=== PATIENT | female | born 1995 | race Two or more races ===

== ENCOUNTER 2019-05-28 16:26 | Emergency (ER) | payer MEDICAID ==
[~2019-05-28] VITALS: Ht 149.9 cm; Wt 97.1 kg
[2019-05-28 16:30] VITALS: BP 152/85
--- NOTE | 2019-05-28 16:30 | NUR ---
ED Nurse Note: Patient manny RA [id number] from home c/o dizziness for the past 30 minutes, patient states that she does feel nauseous and feels like the room is spinning however reports of no episodes of vomiting. reports of 5/10 abdominal pain. patient is alert and oriented x4, ambulatory with a steady gait, VSS
--- NOTE | 2019-05-28 16:53 | Emergency Room Report ---
History of Present Illness General Chief Complaint: Dizziness Source: Patient Present Illness HPI HPI: This is a 24-year-old otherwise healthy female presents for evaluation of abdominal discomfort, dizziness and near syncope. Symptoms began earlier this morning and have intensified throughout the day. She notes a generalized and diffuse abdominal cramping, persistently worsening nausea throughout the day and several episodes of "dizziness." She describes this as sometimes unsteadiness and sometimes the subjective feeling of motion falling to the left side. She states she had one near syncopal episode which improved after laying down flat. She called EMS after this near syncopal episode. She denies any chest pain, shortness of breath, vomiting, diarrhea or recent illness. She takes no medications. Denies the possibility of though states she does not get regular periods. Denies any urinary frequency, pain, discharge or vaginal bleeding. She denies any changes in her hearing, changes in coordination, difficulty ambulating, weakness, paresthesias, neck or back pain, changes in her speech. She does note a slight headache over the right temporal region that started several minutes prior to arrival in the ED. Currently grades it as a 4/10. PMH: Denies PSH: Denies Social Hx: Denies tobacco use, alcohol use, drug use Allergies: Denies Allergies: Coded Allergies: No Known Allergies (Unverified , 05/28/19) Patient History Last Menstrual Period: per pt, not getting any period Nursing Documentation-PMH Past Medical History: No Stated History Review of Systems All Other Systems: negative except mentioned in HPI Physical Exam Vital Signs Date Time Temp Pulse Resp B/P (MAP) Pulse Ox O2 Delivery O2 Flow Rate FiO2 05/28/19 16:26 98.4 96 16 140/83 (102) 100 Room Air General: Awake and alert appears mildly uncomfortable HEENT: Normocephalic, atraumatic. EOMI. no nystagmus. Visual cotto are full. Facial expressions are symmetrical. No droop. Tongue and uvula are midline. Neck: Supple, trachea midline Chest Wall: No tenderness, no deformity CV: RRR. S1 and S2 normal. No murmur appreciated Resp: Normal work of breathing. No cough, wheezing or crackles appreciated Abd: Soft, obese abdomen. Mild tenderness diffusely. No rebound. Skin: Intact. No abrasions, laceration or rash over the exposed skin MSK: Normal tone and bulk. No obvious deformity. Moving all extremities Neuro: Awake and alert. Mentating appropriately. There is no nystagmus. There is no ataxia on [id number] testing. Visual cotto are full. Facial expression's are symmetrical. Medical Decision Making Diagnostic Impression: Primary Impression: Dizziness Additional Impressions: Abdominal pain Nausea ER Course Is a 24-year-old otherwise healthy female presenting for evaluation of nausea, diffuse abdominal pain and dizziness beginning earlier today. Vital signs are stable though she appears mildly uncomfortable. She states her nausea is improving though still present as well with some intermittent dizziness. There does not appear to be a positional effect of this dizziness she does describe some vague abdominal pain. This may be vertiginous or an early GI illness. Will obtain EKG, give IV fluids, antiemetics and check labs including . EKG Diagnostic Results EKG Time: 16:52 EP Interpretation: Normal sinus rhythm, no ST changes, normal intervals and normal axis. Rate: normal Rhythm: NSR ST Segments: no acute changes Rhythm Strip Diag. Results Rhythm Strip Time: 16:52 EP Interpretation: yes Rate: 81 Rhythm: NSR Reevaluation Time: 18:28 Last Vital Signs Date Time Temp Pulse Resp B/P (MAP) Pulse Ox O2 Delivery O2 Flow Rate FiO2 05/28/19 16:30 98.4 90 16 152/85 100 Room Air Status: improved Reevaluation Impression Patient had little improvement after receiving IV Zofran however she was then given Reglan which drastically improved her symptoms. She states her abdominal pain, nausea and dizziness feelings are resolved. Labs, EKG returned largely unremarkable. There was microscopic hematuria, proteinuria and bacteria in the urine sample though this may be contamination given the epithelial cells. Will send for culture and elect not to treat at this time as she has no symptoms of a urinary tract infection. She can follow-up with a hematuria as an outpatient. Will prescribe Reglan for symptom control over the next few days. Will include list of primary care clinics in the area taking new patients. Discussed reasons to return to the emergency department patient. She understands and agrees with this treatment plan will be discharged home. Disposition: HOME, SELF-CARE Condition: Improved Scripts Metoclopramide Hcl* (REGLAN*) 5 Mg Tablet 5 MG ORAL EVERY 6 HOURS, #10 TAB Prov: Jas Mary MD 05/28/19 Referrals: Britney LEONREFERRING (PCP) Jas Mary MD May 28, 2019 16:53
[2019-05-28 17:04] LABS: BASOPHILS % (AUTO) 1.1 % (0.0-2.0); EOSINOPHILS % (AUTO) 3.9 % (0.0-3.0); HEMOGLOBIN 14.9 G/DL (12.0-16.0); LYMPHOCYTES % (AUTO) 36.3 % (20.0-45.0); MEAN CORPUSCULAR VOLUME 80 FL (80-99); MONOCYTES % (AUTO) 6.6 % (1.0-10.0); NEUTROPHILS % (AUTO) 52.1 % (45.0-75.0); PLATELET COUNT 409 K/UL (150-450); RED BLOOD COUNT 5.36 M/UL (4.20-5.40); RED CELL DISTRIBUTION WIDTH 11.2 % (11.6-14.8)
[2019-05-28 17:05] LABS: APPEARANCE,URINE SLIGHTLY CLOUDY; BILIRUBIN, URINE NEGATIVE (NEGATIVE); COLOR,URINE PALE YELLOW; GLUCOSE, URINE (UA) NEGATIVE (NEGATIVE); KETONES,URINE NEGATIVE (NEGATIVE); LEUKOCYTE ESTERASE ,URINE NEGATIVE (NEGATIVE); NITRITE,URINE NEGATIVE (NEGATIVE); PH,URINE 6.5 (4.5-8.0); PROTEIN,URINE 4+ (NEGATIVE); UROBILINOGEN,URINE NORMAL MG/DL (0.0-1.0)
[2019-05-28] MEDS ORDERED: Metoclopramide 10mg/2ml Inj ONE (17:26)
[2019-05-28 17:27] LABS: ANION GAP 7 mmol/L (5-15); BLOOD UREA NITROGEN 10 mg/dL (7-18); CALCIUM 9.1 MG/DL (8.5-10.1); CARBON DIOXIDE 29 MMOL/L (21-32); CHLORIDE 106 MMOL/L (98-107); CREATININE 0.7 MG/DL (0.55-1.30); POTASSIUM 3.8 MMOL/L (3.5-5.1); SODIUM 142 MMOL/L (136-145)
[2019-05-28 17:30] LABS: ALANINE AMINOTRANSFERASE 66 U/L (12-78); ALBUMIN 3.8 G/DL (3.4-5.0); ALBUMIN/GLOBULIN RATIO 0.8 (1.0-2.7); ALKALINE PHOSPHATASE 96 U/L (46-116); ASPARTATE AMINO TRANSFERASE < 5 U/L (15-37); BILIRUBIN,TOTAL 0.2 MG/DL (0.2-1.0)
[2019-05-28] MEDS ORDERED: Metoclopramide 10mg/2ml Inj IVP ONE (17:30)
[2019-05-28 18:30] VITALS: BP 120/82
--- NOTE | 2019-05-28 18:30 | NUR ---
ER DISCHARGE NOTE: Patient is cleared to be discharged per ERMD, pt is aox4, on room air, with stable vital signs. pt was given dc and prescription instructions, pt was able to verbalize understanding, pt id band and iv site removed without complications. pt is able to ambulate with steady gait. pt took all belongings.
[2019-05-28] MEDS ORDERED: REGLAN5 MG ORAL (18:31)
[2019-05-31] MEDS ORDERED: CEPHALEXIN500 MG ORAL (07:41)
== END 2019-05-28 18:30 | disposition home or self-care (01) ==
LOC: EDBD 16:26 → EMR 16:40
DX: R42 Dizziness and giddiness (principal); R10.9 Unspecified abdominal pain; R11.0 Nausea
CPT/HCPCS: 36415; 80053; 81003; 81025; 83690; 85025; 87086; 87181; 93005; 96361; 96374; 96375; 99284; J2405; J2765

== ENCOUNTER 2020-02-12 19:31 | Emergency (ER) | payer MEDICAID ==
[~2020-02-12] VITALS: Ht 165.1 cm; Wt 90.7 kg
[~2020-02-12 19:31] MED LIST: CEPHALEXIN500 MG ORAL; REGLAN5 MG ORAL
--- NOTE | 2020-02-12 19:44 | NUR ---
ED Nurse Note: Walk-in patient with complaints of ack pain x 3 days, minimally responsive to tylenol. ERMD at bedside.
[2020-02-12 19:45] VITALS: BP 128/80
[2020-02-12] MEDS ORDERED: Methocarbamol 500mg tab ORAL ONE (19:48)
[2020-02-12] MEDS ORDERED: Ketorolac 30mg Inj ONE (19:48)
[2020-02-12] MEDS ORDERED: ROBAXIN-750750 MG PO (19:49)
[2020-02-12] MEDS ORDERED: LIDODERM700 M1 TOPIC (19:49)
[2020-02-12] MEDS ORDERED: ACETAMINOPHEN325 M1 ORAL (19:49)
[2020-02-12] MEDS ORDERED: IBUPROFEN600 M1 ORAL (19:49)
--- NOTE | 2020-02-12 19:53 | Emergency Room Report ---
History of Present Illness General Chief Complaint: Back Pain-No Injury Source: Patient Present Illness HPI Disclaimer: Please note that this report is being documented using [employer] technology. This can lead to erroneous entry secondary to incorrect interpretation by the dictating instrument. This is a 25-year-old female presenting for evaluation of right-sided back pain. 2 days ago the patient slipped while getting out of the shower falling backwards though catching herself on a railing. She states she significantly strained her back. Reports continuous aching and worsening pain on the right side that is worse with bending and twisting motion and somewhat relieved by rest. Also getting some help from Tylenol though this is intermittent. Denies any pain rating down the leg. Denies urinary retention, fecal incontinence, lower extremity weakness, lower extremity numbness/tingling. No prior history of back injury. No other injury reported. Otherwise in her usual state of health. Denies vaginal bleeding, vaginal discharge, fever, chills, dysuria, hematuria, urinary frequency or urgency. Allergies: Coded Allergies: No Known Allergies (Unverified , 05/28/19) COVID-19 Screening Contact w/high risk pt: No Recent Travel to affected area: No Experienced COVID-19 symptoms?: No Patient History Last Menstrual Period: 01/21/20 Now: No : 0 Para: 0 Nursing Documentation-[facility] Past Medical History: No Stated History Review of Systems All Other Systems: negative except mentioned in HPI Physical Exam Vital Signs Date Time Temp Pulse Resp B/P (MAP) Pulse Ox O2 Delivery O2 Flow Rate FiO2 02/12/20 19:35 98.8 79 17 128/80 (96) 96 Room Air General: Awake and alert, no acute distress HEENT: NC/AT. EOMI. Resp: Normal work of breathing Skin: Intact. No abrasions, laceration or rash over the exposed skin MSK: Normal tone and bulk. Moving all extremities. No obvious deformity. Ambulating without difficulty Neuro: Awake and alert. Mentating appropriately. Sensation intact over the dermatomes of lower extremities bilaterally. Spine: No tenderness, step-off or deformity in the thoracic or lumbosacral spine over the midline. No paraspinal tenderness. There is tenderness over the right side just above the right iliac crest. Medical Decision Making Diagnostic Impression: Primary Impression: Low back strain ER Course Is a 25-year-old female presenting for evaluation of right-sided back pain 2 days duration after a slip in the shower. Patient's history and physical exam was consistent with a mild strain or spasm. There is no tenderness in the midline of the spine and no direct trauma reported. No dictation for imaging at this time. She is neurologically intact. Will treat with NSAIDs, Robaxin, lidocaine patches. Patient will follow-up on outpatient basis with PMD. Also gave information for the orthopedic urgent care should her symptoms persist. Instructed to return with new or worsening symptoms. She understands and agrees with this treatment plan. Last Vital Signs Date Time Temp Pulse Resp B/P (MAP) Pulse Ox O2 Delivery O2 Flow Rate FiO2 02/12/20 19:45 98.8 79 17 128/80 96 Room Air Disposition: HOME, SELF-CARE Condition: Stable Scripts Lidocaine Patch* (Lidoderm Patch*) 1 Each Adh..patch 1 PATCH TOPIC DAILY, #10 PATCH 0 Refills Patch(es) may remain in place for up to 12 hours in any 24-hour period. Prov: Jas Mary MD 02/12/20 Methocarbamol* (ROBAXIN-750*) 750 Mg Tablet 750 MG PO QID, #28 TAB 0 Refills Prov: Jas Mary MD 02/12/20 Acetaminophen* (ACETAMINOPHEN 325MG TABLET*) 325 Mg Tablet 650 MG ORAL Q6H PRN for For Pain, #40 TAB Prov: Jas Mary MD 02/12/20 Ibuprofen* (MOTRIN*) 600 Mg Tablet 600 MG ORAL Q6H PRN for For Pain, #30 TAB 0 Refills Prov: Jas Mary MD 02/12/20 Referrals: Britney Mcdonough [facility] Open 24 hour /7 days a week by Appointment Only [address] [facility] [address] [facility] [address] Patient Instructions: Back Pain, Adult, Low Back Strain With Rehab-SportsMed Additional Instructions: Use the medication as prescribed. Please follow-up with your primary care doctor in the next 1 to 3 days to discuss this emergency department visit and for reevaluation. If you have any new or worsening symptoms please return to the emergency department for reevaluation. Please note that this report is being documented using [employer] technology. This can lead to erroneous entry secondary to incorrect interpretation by the dictating instrument. Jas Mary MD Feb 12, 2020 19:53
[2020-02-12] MEDS ORDERED: Ketorolac 30mg Inj IM ONE (20:00)
[2020-02-12] MEDS ORDERED: Methocarbamol 750mg tab ORAL ONE (20:00)
--- NOTE | 2020-02-12 20:02 | NUR ---
ER DISCHARGE NOTE: Patient is cleared to be discharged per ERMD, pt is aox4, on room air, with stable vital signs. pt was given dc and prescription instructions, pt was able to verbalize understanding, pt id band removed. pt is able to ambulate with steady gait. pt took all belongings. Patient tolerated medication administration well and departed accompanied by her .
[2020-02-12 20:03] VITALS: BP 128/80
== END 2020-02-12 20:03 | disposition home or self-care (01) ==
LOC: EMR 19:47
DX: S39.012A Strain of muscle, fascia and tendon of lower back, initial encounter (principal); W18.2XXA Fall in (into) shower or empty bathtub, initial encounter
CPT/HCPCS: 96372; J1885; Z7502; 99283

== ENCOUNTER 2020-09-23 18:14 | Emergency (ER) | payer MEDICAID ==
[~2020-09-23] VITALS: Ht 147.3 cm; Wt 98.4 kg
[~2020-09-23 18:14] MED LIST changes: +ACETAMINOPHEN325 M1 ORAL; +IBUPROFEN600 M1 ORAL; +LIDODERM700 M1 TOPIC; +ROBAXIN-750750 MG PO
--- NOTE | 2020-09-23 18:50 | NUR ---
ED Nurse Note: pt presents to ED with an abscess to R ankle. pt has many scars on bilat feet and ankles, pt states that she thinks it could be from fleas. pt reports she noticed the draining wound on monday, reports that it is painful. wound is open and draining, red and swollen.
[2020-09-23 19:12] VITALS: BP 132/87
[2020-09-23] MEDS ORDERED: Lidocaine 1% MPF 10mg/ml 5ml INJ ONE (19:15)
--- NOTE | 2020-09-23 19:29 | Emergency Room Report ---
History of Present Illness General Chief Complaint: Skin Rash/Abscess Source: Patient Present Illness HPI 25-year-old female with no symptom medical history here complaining of a painful lesion on right foot. Patient does not recall how she got it however it has been there for a week reports that it might be due to her cat bite or cat flea. An infected pus draining lesion noted does not appear to be an abscess dorsum of right foot patient has full range of motion of the affected side, neurovascularly intact and denies any tingling or numbness. Is afebrile denies chest pain, shortness of breath, headache and dizziness. Has not taken medication for symptom relief. Up-to-date with tetanus shot. 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 - 09/22/20 COVID-19 Screening: Negative COVID-19 COVID-19 Testing Source: [employer] INSPECTOR Patient History Past Medical History: see triage record Past Surgical History: none Pertinent Family History: none Last Menstrual Period: 09/22/20 Now: No Immunizations: UTD Reviewed Nursing Documentation: PMH: Agreed; PSxH: Agreed Nursing Documentation-PMH Past Medical History: No Stated History Review of Systems All Other Systems: negative except mentioned in HPI Physical Exam Vital Signs Date Time Temp Pulse Resp B/P (MAP) Pulse Ox O2 Delivery O2 Flow Rate FiO2 09/23/20 18:30 98.4 101 16 132/87 (102) 95 Room Air Sp02 EP Interpretation: reviewed, normal General Appearance: no apparent distress, alert, GCS 15, non-toxic Head: normocephalic, atraumatic Eyes: bilateral eye normal inspection, bilateral eye PERRL ENT: hearing grossly normal, normal pharynx, no angioedema, normal voice Neck: full range of motion, supple/symm/no masses Respiratory: chest non-tender, lungs clear, normal breath sounds, speaking full sentences Cardiovascular #1: regular rate, rhythm, no edema Cardiovascular #2: 2+ dorsalis pedis (R), 2+ dorsalis pedis (L) Gastrointestinal: non tender Musculoskeletal: back normal, no calf tenderness, moves extm spontaneously, gait/station normal, Wally's Sign negative, non-tender, other - Infected wound right foot Neurologic: alert, motor strength/tone normal, oriented x3, sensory intact, responsive, speech normal Psychiatric: judgement/insight normal, memory normal, mood/affect normal, no suicidal/homicidal ideation Skin: other - Infected wound right foot Lymphatic: no adenopathy Medical Decision Making PA Attestation All diagnoses and treatment plans were reviewed and discussed with my supervising physician Dr. Noel Diagnostic Impression: Primary Impression: Infected skin lesion ER Course 25-year-old female with no symptom medical history here complaining of a painful lesion on right foot. Patient does not recall how she got it however it has been there for a week reports that it might be due to her cat bite or cat flea. An infected pus draining lesion noted does not appear to be an abscess dorsum of right foot patient has full range of motion of the affected side, neurovascularly intact and denies any tingling or numbness. Is afebrile denies chest pain, shortness of breath, headache and dizziness. Has not taken medication for symptom relief. Up-to-date with tetanus shot. Ddx considered but are not limited to : Cellulitis, infected wound, superficial infection, abscess Vital signs: are WNL, pt. is afebrile H&PE are most consistent with: Infected wound right foot ORDERS: Bactrim DS, Keflex, ibuprofen ED INTERVENTIONS: Wound clean and dressed, Rocephin IM DISCHARGE: At this time pt. is stable for d/c to home. Will provide printed patient care instructions, and any necessary prescriptions. Care plan and follow up instructions have been discussed with the patient prior to discharge. Patient take medication as directed, follow primary care provider, if worsening symptom and worsening of the pus drainage return to the emergency room At this time I do not feel any crepitus or tenderness to the affected side to suspect osteomyelitis however I advised patient to return to the emergency room if worsening symptoms Last Vital Signs Date Time Temp Pulse Resp B/P (MAP) Pulse Ox O2 Delivery O2 Flow Rate FiO2 09/23/20 19:12 98.4 86 16 132/87 95 Room Air Disposition: HOME, SELF-CARE Condition: Stable Scripts Ibuprofen (Ibu) 800 Mg Tablet 800 MG PO TID, #30 TAB Prov: Chilango Johnston 09/23/20 Trimethoprim/Sulfamethoxazole 160/800* (BACTRIM DS TABLET*) 1 Each Tablet 1 TAB ORAL TWICE A DAY for 7 Days, #14 TAB Prov: Chilango Johnston 09/23/20 Cephalexin* (KEFLEX*) 500 Mg Capsule 500 MG ORAL EVERY 6 HOURS for 7 Days, #28 CAP Prov: Chilango Johnston 09/23/20 Referrals: [facility]ERR[facility] (PCP) Patient Instructions: Cellulitis Additional Instructions: Take medication as directed, follow primary care provider, if worsening symptoms return to the emergency room Chilango Johnston Sep 23, 2020 19:29
[2020-09-23] MEDS ORDERED: Bacitracin Oint UD TOPIC ONE (19:30)
[2020-09-23] MEDS ORDERED: IBU800 MG PO (19:30)
[2020-09-23] MEDS ORDERED: BACTRIM DS TAB1 EAC1 ORAL (19:30)
[2020-09-23] MEDS ORDERED: CEPHALEXIN500 MG ORAL (19:30)
--- NOTE | 2020-09-23 19:30 | NUR ---
ED Nurse Note: pt's R ankle cleaned and re-wrapped by senior wind turbine technician
[2020-09-23 19:40] VITALS: BP 132/87
--- NOTE | 2020-09-23 19:40 | NUR ---
ER DISCHARGE NOTE: Patient is cleared to be discharged per ERMD, pt is aox4, on room air, with stable vital signs. pt was given dc and prescription instructions, pt was able to verbalize understanding, pt id band removed without complications. pt is able to ambulate with steady gait. pt took all belongings.
== END 2020-09-23 19:40 | disposition home or self-care (01) ==
LOC: EMR 19:04
DX: L08.9 Local infection of the skin and subcutaneous tissue, unspecified (principal)
CPT/HCPCS: 96372; J0696; Z7502; 99283